=== PATIENT | male | born 2005 | race Caucasian/White ===

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

== ENCOUNTER 2023-02-25 01:49 | Emergency (ER) | payer BC, SELFPAY ==
[2023-02-25 01:57] VITALS: BP 160/95; PULSE 89; RESP 18; TEMP 36.8; O2SAT 97
--- NOTE | 2023-02-25 02:19 | ED.GENADULT ---
HPI - General Adult General Chief complaint: Unspecified Stated complaint: Rash Source: patient Mode of arrival: ambulatory Limitations: no limitations History of Present Illness HPI narrative: 17-year-old white male who reports he has had what he thinks are triggers for the past week, has bumps over his extremities, trunk, that are intensely pruritic, and reports he has spent a lot time out in his yd, and the grasses been long. is difficult to get sleep without severely they itch. He also reports that he has athlete's foot and is asking for something for that. he also reports he noticed his blood pressure was 160/95, and reports that his blood pressure is a little bit elevated like that at other times as well, and is wondering if he needs blood pressure medicine. He reports he is on 3 medications for bipolar disorder although the only 1 he can remember the name of his clonidine. He denies fever, chills, sinus drainage, sore throat, coughing, shortness of breath, chest pain, palpitation, near-syncope or syncope. Denies pain, nausea vomiting, diarrhea constipation, dysuria urgency or frequency Related Data Allergies Allergy/AdvReac Type Severity Reaction Status Date / Time No Known Allergies Allergy Verified 02/25/23 01:59 [facility] Past Medical History Medical History (Updated 02/25/23 @ 02:56 by Khurram Savage MD) ADHD Anxiety Bipolar disorder with depression Current smoker Left ankle pain Oppositional defiant disorder with chronic irritability and anger (04/28/17) STD exposure Social History Social History Smoking status: Current every day smoker Tobacco type: e-cigarettes/vaping Alcohol intake: current Substance use: never Substance use type: marijuana Lack of Transportation: No Lack of Food: Never True Current Housing: I Have Housing Concerned About Future Housing: No Difficulty Paying Gas/Electric Bills: No Difficulty Paying for Meds: No Currently Unemployed: No Education: Decline to Answer Difficulty w/ Childcare or Family Care: No Living arrangements: alone Exam Narrative: pleasant, well-appearing, oriented x3, no acute distress Const: General: cooperative, healthy appearing, comfortable, no acute distress, well developed, alert, awake and Physically active Orientation/consciousness: patient oriented x3 HENMT: Head: normal to inspection, normocephalic and atraumatic Ears: hearing grossly normal bilaterally and external ears normal Face/Nose/Sinus: Normal external nose present, Normal nares present, Normal nasal mucous membranes and turbinates present and normal facial exam Face and sinus: normal facial exam Mouth: Yes Normal oral and palatal mucosa present, Yes lip normal, Yes tongue normal, Yes oropharynx normal and Yes moist mucous membranes Teeth and gingiva: dentition normal Throat: posterior oropharynx normal and tonsils normal ( erythematous) Eyes: General: appearance normal, both eyes and all related structures Alignment and Position: alignment normal and position normal Periorbital: periorbital findings normal Eyelids: eyelids normal Conjunctivae: conjunctivae normal Sclera: sclerae normal Cornea: corneas normal Pupils: Equal, round and reactive pupils present EOM: EOMs intact bilaterally Neck: Neck: normal visual inspection, full ROM and no lymphadenopathy Chest: Chest palpation & inspection: normal inspection of the chest Resp: Effort & Inspection: normal respiratory effort, able to speak in complete sentences, no audible wheezes, no respiratory distress and no use of accessory muscles Auscultation: clear to auscultation bilaterally Cardio: Jugular venous distension: no JVD Rate: regular rate Rhythm: regular rhythm GI: Inspection: normal to inspection GI Palp: No abdominal tenderness, No Tenderness to palpation present (GI), No Guarding due to palpation present (GI), No No hepatosplenomegaly
[2023-02-25] MEDS: FAMOTIDINE 20 MG TABLET 40 MG PO (02:29)
[2023-02-25] MEDS: LORATADINE 10 MG TABLET PO (02:30)
[2023-02-25] MEDS: predniSONE 20 MG TABLET 60 MG PO (02:30)
[2023-02-25] MEDS: hydrOXYzine HCL 25 MG TABLET 50 MG PO (02:31)
[2023-02-25 03:02] VITALS: BP 154/90; PULSE 81; RESP 18; O2SAT 98
== END 2023-02-25 03:04 | disposition home or self-care (01) ==
PROVIDERS: Emergency Provider Emergency Medicine
DX: B88.0 Other acariasis (principal); B35.3 Tinea pedis; R03.0 Elevated blood-pressure reading, without diagnosis of hypertension; S80.862A Insect bite (nonvenomous), left lower leg, initial encounter; S80.861A Insect bite (nonvenomous), right lower leg, initial encounter; S40.862A Insect bite (nonvenomous) of left upper arm, initial encounter; S40.861A Insect bite (nonvenomous) of right upper arm, initial encounter; F17.290 Nicotine dependence, other tobacco product, uncomplicated; W57.XXXA Bitten or stung by nonvenomous insect and other nonvenomous arthropods, initial encounter
CPT/HCPCS: 99283; A9270; J7512

== ENCOUNTER 2025-08-13 23:57 | Emergency (ER) | payer BC, MEDICAID, SELFPAY ==
--- NOTE | ~2025-08-13 | US_ITS ---
EXAMINATION: US scrotum doppler DATE: 08/14/2025 02:15 INDICATION: Testicular pain. TECHNIQUE: Grayscale and Doppler ultrasound images of the testes were obtained. COMPARISON: None. FINDINGS: The right testis measures 4.6 x 2.3 x 3.2 cm. The left testis measures 4.4 x 2.3 x 3.1 cm. There is normal vascular flow to both testes. The right epididymis is normal. The left epididymis is normal. Color Doppler of the epididymides was not performed. There is no varicocele or hydrocele. IMPRESSION: 1. Normal testes. Reviewed, dictated and finalized at location E. WRITER IMPRESSION: 1. Normal testes.
--- NOTE | 2025-08-14 00:10 | ED_ITS ---
HPI - General Adult General Chief complaint: Unspecified Stated complaint: swollen testicle Time Seen by Provider: 08/14/25 00:02 History of Present Illness HPI narrative: 20-year-old otherwise healthy male presenting to the emergency department after penile/scrotal injury while having intercourse. [place] around 9:00 a.m. about 15 hours prior to initial assessment. He states that he was having sex with his girlfriend when he accidentally withdrew his penis and it bent while trying to be reinserted and he had significant sudden-onset pain and felt a snap, crackle, and pop. and had immediate detumescence and significant pain. He then started developing bruising and bluish/purple discoloration of his penis and scrotum anteriorly. He now has swollen testicles and bluish/ purple discoloration of the scrotal wall and pain along his penile shaft. Denies any dysuria or hematuria but states that he has not really had to go the bathroom since this happened. States that he could not obtain an erection again and was too painful to try. Denies any other injuries. No fever chills. Related Data Allergies Allergy/AdvReac Type Severity Reaction Status Date / Time No Known Allergies Allergy Verified 08/14/25 00:07 Review of Systems 2 Review of Systems: As reviewed above in HPI All systems reviewed & are unremarkable except as noted in HPI and below PMFSH Past Medical History Medical History Left ankle pain Anxiety STD exposure Current smoker Bipolar disorder with depression ADHD Oppositional defiant disorder with chronic irritability and anger (04/28/17) Social History Social History Smoking status: Current every day smoker Tobacco type: e-cigarettes/vaping Alcohol intake: current Substance use: never Substance use type: marijuana Lack of Transportation: No Lack of Food: Never True Current Housing: I Have Housing Concerned About Future Housing: No Difficulty Paying Gas/Electric Bills: No Difficulty Paying for Meds: No Currently Unemployed: No Education: Decline to Answer Difficulty w/ Childcare or Family Care: No Living arrangements: alone Exam 2 Narrative: GENERAL: [Well-appearing, well-nourished, and in no acute distress.] HEAD: [Normocephalic, atraumatic.] EYES: [PERRLA and EOMI.] ENT: Nares clear, no rhinorrhea or epistaxis. Mucous membranes moist. NECK: Supple. CHEST: [Clear to auscultation. No respiratory distress.] HEART: [Regular rate and rhythm]. No murmur heard. [Normal peripheral pulses.] ABDOMEN: [Soft, nondistended], [nontender], [No rigidity or guarding] : Chaperoned genitourinary examination shows ventral ecchymoses and enlargement of bilateral aspects of scrotum, Testicles palpated without significant pain, scrotal wall with tenderness to palpation. Some discoloration with violaceous hue to the underside of the penis/anterior scrotum. No penile tenderness. No inguinal hernias or masses. EXTREMITIES: Normal range of motion. [No edema.] SKIN: Warm, dry, no rash. NEURO: [No focal deficits]. Alert and oriented [x3.] PSYCH: [Normal mood and affect.] Course Vital Signs Vital signs: Vital Signs Temperature 36.7 C 08/14/25 00:13 Pulse Rate 93 08/14/25 00:13 Respiratory Rate 18 08/14/25 00:13 Blood Pressure 153/76 H 08/14/25 00:13 Pulse Oximetry 100 08/14/25 00:13 Temperature 36.7 C 08/14/25 00:13 Pulse Rate 93 08/14/25 00:13 Respiratory Rate 18 08/14/25 00:13 Blood Pressure 153/76 H 08/14/25 00:13 Pulse Oximetry 100 08/14/25 00:13 Medical Decision Making MDM Narrative Medical decision making narrative: 20-year-old otherwise healthy male presenting to the emergency department after penile/scrotal injury while having intercourse. [place] around 9:00 a.m. about 15 hours prior to initial assessment. He states that he was having sex with his girlfriend when he accidentally withdrew his penis and it bent while trying to be reinserted and he had significant sudden-onset pain and felt a snap, crackle, and pop. and had immediate detumescence and significant pain. He then started developing bruising and bluish/purple discoloration of his penis and scrotum anteriorly. He now has swollen testicles and bluish/ purple discoloration of the scrotal wall and pain along his penile shaft. Denies any dysuria or hematuria but states that he has not really had to go the bathroom since this happened. States that he could not obtain an erection again and was too painful to try. Denies any other injuries. No fever chills. Chaperoned genitourinary examination shows ventral ecchymoses and enlargement of bilateral aspects of scrotum, Testicles palpated without significant pain, scrotal wall with tenderness to palpation. Some discoloration with violaceous hue to the underside of the penis/anterior scrotum. No penile tenderness. No inguinal hernias or masses. concern presently for penile fracture versus disruption of the tunica verses Hardin's fascia. Call placed to Urology for recommendations but in the meantime CT scan ultrasound ordered with urinalysis and laboratory studies. Patient offered pain medications but he declined. Urology Dr. Lares did call back and recommended just going to the operating room rather than obtaining imaging results or waiting any longer given story sounds classical for potential fracture. Patient re-evaluated and having no further deterioration or complaints, informed about potential OR. Patient told me that he ate dinner last night. Awaiting Urology at this time. Urology has come evaluated the patient at bedside and does not believe he has a penile fracture after their evaluation. Recommendations are to obtain ultrasound at this time. Scrotal ultrasound obtained and reviewed by the urologist with no interventions needed OR was called off and team went home. Ultrasound formally read by radiology showing no acute findings or evidence of any torsion. Patient felt much better after being here in the ED and safe for discharge home with Urology follow-up. Patient given Tylenol ibuprofen and instructions for scrotal support and to avoid repeat injury to the area. Medical Records Medical records reviewed: Yes I reviewed the external patient's medical records. Vital Signs Vital Signs: Vital Signs Temperature 36.7 C 08/14/25 00:13 Pulse Rate 93 08/14/25 00:13 Respiratory Rate 18 08/14/25 00:13 Blood Pressure 153/76 H 08/14/25 00:13 Pulse Oximetry 100 08/14/25 00:13 Temperature 36.7 C 08/14/25 00:13 Pulse Rate 93 08/14/25 00:13 Respiratory Rate 18 08/14/25 00:13 Blood Pressure 153/76 H 08/14/25 00:13 Pulse Oximetry 100 08/14/25 00:13 Lab Data Lab results reviewed: Yes I reviewed the patient's lab results. 08/14/25 00:18 08/14/25 00:18 Labs: Lab Results 08/14/25 08/14/25 Range/Units 00:18 00:21 WBC 7.5 (4.5-10.0) K/mm3 RBC 5.15 (4.6-6.20) M/mm3 Hgb 15.3 (14.0-18.0) g/dL Hct 44.9 (42.0-52.0) % MCV 87.2 (80-100) fl MCH 29.7 (26-34) pg MCHC 34.1 (32-36) g/dl RDW 11.9 (11.5-14.5) % Plt Count 202 (150-375) k/mm3 MPV 8.5 (7.4-10.4) fl Immature Gran % (Auto) 0.1 (0-0.5) % Neut % (Auto) 61.1 (45.5-73.1) % Lymph % (Auto) 28.5 (18.3-44.2) % [place] % (Auto) 9.4 H (2.6-8.5) % Eos % (Auto) 0.5 (0-4.4) % Baso % (Auto) 0.4 (0.2-1.2) % Lymph # (Auto) 2.14 (0.9-3.2) K/mm3 [place] # (Auto) 0.7 H (0.1-0.6) K/mm3 Eos # (Auto) 0.0 (0-0.3) K/mm3 Baso # (Auto) 0.0 (0.0-0.1) K/mm3 Abs Immat Gran (auto) 0.01 (0.00-0.031) K/mm3 Absolute Neuts (auto) 4.6 (1.3-6.7) K/mm3 Absolute Nucleated RBC 0.000 (0.0-0.012) K/mm3 Nucleated RBC % 0.0 (0.0-0.2) % Sodium 135 L (137-145) mmol/L Potassium 4.2 (3.4-5.0) mmol/L Chloride 99 (98-107) mmol/L Carbon Dioxide 28 (22-30) mmol/L Anion Gap 8 (4-12) mmol/L BUN 15 (9-20) mg/dL Creatinine 1.33 H (0.7-1.3) mg/dL Estim Creat Clear Calc 83 ml/min Estimated GFR > 60 (59 - ) Glucose 96 (65-110) mg/dL Calcium 9.3 (8.4-10.2) mg/dL Urine Color Dark yellow (Yellow) Urine Appearance Clear (Clear) Urine pH 5.5 (5.0-9.0) Ur Specific [place] 1.032 (1.001-1.035) Urine Protein Trace (Negative) mg/dL Urine Glucose (UA) Negative (Negative) mg/dL Urine Ketones Trace H (Negative) mg/dL Ur Blood (Man) Negative (Negative) Urine Nitrate Negative (Negative) Urine Bilirubin Negative (Negative) Urine Urobilinogen 1.0 (<2.0) mg/dL Add Ur Microanalysis Reviewed Leukocyte Esterase Rfl Negative (Negative) ANTONY/UL Urine RBC 0-2 (0-2) /hpf Urine WBC 0-5 (0-3) /hpf Ur Squamous Epith Cells None seen (Few) /hpf Urine Bacteria None seen /hpf Urine Casts 6-10 Hyaline Casts Present (None) /lpf Urine Mucus Present /lpf C. trachomatis (PCR) Not detected (NOT DETECTE) N. gonorrhoeae (PCR) Not detected (NOT DETECTE) T. vaginalis (PCR) Not detected (NOT DETECTE) Blood Type O Positive Antibody Screen Negative Imaging Data Attestation: I personally reviewed and interpreted this imaging study as follows: My impression: nothing acute Discharge Plan Discharge Clinical Impression: Scrotal bruise Patient Disposition: Home Condition: Stable Instructions: Antibiotic Form, Scrotal Pain (ED) Additional Instructions: No urgent or emergent concerns identified today. No fractures or testicular involvement. Wear tight-fitting scrotal supporting underwear for comfort and take Tylenol and ibuprofen every 6-8 hours for control of symptoms. Follow-up with Urology outpatient return with any emergent concerns. Patient Language: [place] Island[place] Prescriptions: No Action prednisone 5 mg tablet 5 mg PO DIRECTED Qty: 50 0RF Rx Instructions: take 9 tablets the morning of 02/26/2023, then taper by 1 tablet daily until gone loratadine [Claritin] 10 mg tablet 10 mg PO BID Qty: 40 0RF hydroxyzine HCl 25 mg tablet 25 mg PO QID PRN (Reason: itching) Qty: 60 0RF famotidine [Pepcid] 20 mg tablet 20 mg PO BID Qty: 60 0RF terbinafine HCl [Athlete's Foot (terbinafine)] 1 % cream 1 applic topical BID Qty: 30 2RF Follow-up/Referrals: Jean-Paul Lares MD [Physician, Urology] - 1 Week Referral Note: Scrotal bruising UNKNOWN,DOCTOR [Non-Staff] Time of Disposition: 03:45
[2025-08-14 00:13] VITALS: BP 153/76; PULSE 93; RESP 18; TEMP 36.7; O2SAT 100
[2025-08-14 00:34] LABS: Hematocrit 44.9 % (42.0-52.0); Hemoglobin 15.3 g/dL (14.0-18.0); Immature Granulocyte Percent A 0.1 % (0-0.5); Lymphocytes Absolute Auto 2.14 K/mm3 (0.9-3.2); Mean Corpuscular HGB Conc 34.1 g/dl (32-36); Mean Corpuscular Hemoglobin 29.7 pg (26-34); Mean Corpuscular Volume 87.2 fl (80-100); Nucleated Red Blood Cells Absolute Auto 0.000 K/mm3 (0.0-0.012); Nucleated Red Blood Cells Perc 0.0 % (0.0-0.2); Platelet Count Result 202 k/mm3 (150-375); Red Blood Count 5.15 M/mm3 (4.6-6.20); White Blood Count 7.5 K/mm3 (4.5-10.0)
[2025-08-14 00:49] LABS: Anion Gap 8 mmol/L (4-12); Blood Urea Nitrogen 15 mg/dL (9-20); Calcium 9.3 mg/dL (8.4-10.2); Carbon Dioxide 28 mmol/L (22-30); Chloride 99 mmol/L (98-107); Estimated CRCL calculation 83 ml/min; Estimated Glomerular Filt Rate > 60; Glucose 96 mg/dL (65-110); Potassium 4.2 mmol/L (3.4-5.0); Sodium 135 mmol/L (137-145)
[2025-08-14 00:51] LABS: Add Urine Microscopic? YES; Appearance Urine Clear (Clear); Glucose Urine UA Negative (Negative); Leukocyte Esterase Ur Negative LEU/UL (Negative); Need Manual Microscopic Reviewed; Nitrate Urine Negative (Negative); Specific Grav Ur 1.032 (1.001-1.035)
--- NOTE | 2025-08-14 01:20 | PC.NURSE ---
Pt being prep for OR, personal items placed in belonging bag. Made NPO, Surgeon in room speaking with pt. Recommends [facility]. OR updated.
--- NOTE | 2025-08-14 01:23 | P.CONUR_ITS ---
Assessment and Plan Assessment and plan (1) Scrotal bruise: Code(s): S30.22XA - Contusion of scrotum and testes, initial encounter Status: Acute Assessment and Plan: I see no physical evidence of penile fracture. Will check a penile ultrasound to verify no visible hematoma or tunical disruption, but neither clinically nor physically does he have a penile fracture. Urology Consult Note HPI Date Seen: 08/14/25 Requesting Physician: ED provider Primary Care Provider: PHYSICIAN NOT ON STAFF Consult Narrative Narrative: Hany Macdonald is a 20 year old male with an injury during sex about 14 hours ago. He said he heard a pop. He actually was able to get an erection afterwards. There is some question about timing of sexual activity, but he says it was 0900 yesterday. He has some slight bruising on his scrotum, but his penis is entirely normal. No other urologic history. Review of Systems 2 Review of Systems: All systems reviewed & are unremarkable except as noted in HPI and below PMFSH Past Medical History Medical History Left ankle pain Anxiety STD exposure Current smoker Bipolar disorder with depression ADHD Oppositional defiant disorder with chronic irritability and anger (04/28/17) Social History Social History Smoking status: Current every day smoker Tobacco type: e-cigarettes/vaping Alcohol intake: current Substance use: never Substance use type: marijuana Lack of Transportation: No Lack of Food: Never True Current Housing: I Have Housing Concerned About Future Housing: No Difficulty Paying Gas/Electric Bills: No Difficulty Paying for Meds: No Currently Unemployed: No Education: Decline to Answer Difficulty w/ Childcare or Family Care: No Living arrangements: alone Meds Home Medications and Allergies Home Medications ?Medication ?Instructions ?Recorded ?Confirmed ?Type famotidine 20 mg tablet (Pepcid) 20 mg PO BID #60 tabs 02/25/23 Rx hydroxyzine HCl 25 mg tablet 25 mg PO QID PRN itching #60 tabs 02/25/23 Rx loratadine 10 mg tablet (Claritin) 10 mg PO BID #40 ta bs 02/25/23 Rx prednisone 5 mg tablet 5 mg PO DIRECTED #50 tabs 02/25/23 Rx terbinafine HCl 1 % topical cream 1 applic topical BID #30 grams 02/25/23 Rx (Athlete's Foot (terbinafine)) Allergies Allergy/AdvReac Type Severity Reaction Status Date / Time No Known Allergies Allergy Verified 08/14/25 00:07 Vital Signs Vital Signs - 24 hr 08/14/25 00:13 Temperature 36.7 C Pulse Rate 93 Respiratory Rate 18 Blood Pressure 153/76 H Pulse Oximetry 100 Exam 2 Narrative: Alert, oriented, a bit jittery. No neurologic deficits or abnormalities noted. Slight bruising to the anterior scrotum, but the scrotum otherwise is normal. Penis is normal without bruising, tenderness, or palpable deformity. Results Labs 08/14/25 00:18 08/14/25 00:18 Labs: Short CBC 08/14/25 Range/Units 00:18 WBC 7.5 (4.5-10.0) K/mm3 Hgb 15.3 (14.0-18.0) g/dL Hct 44.9 (42.0-52.0) % Plt Count 202 (150-375) k/mm3 BMP 08/14/25 00:18 Sodium 135 L Potassium 4.2 Chloride 99 Carbon Dioxide 28 BUN 15 Creatinine 1.33 H Glucose 96 Calcium 9.3 Urine 08/14/25 Range/Units 00:18 Urine Color Dark yellow (Yellow) Urine Appearance Clear (Clear) Urine pH 5.5 (5.0-9.0) Ur Specific [place] 1.032 (1.001-1.035) Urine Protein Trace (Negative) mg/dL Urine Glucose (UA) Negative (Negative) mg/dL
[2025-08-14 01:43] LABS: Trichomonas Vag PCR NOT DETECTED (NOT DETECTE)
== END 2025-08-14 04:03 | disposition home or self-care (01) ==
PROVIDERS: Emergency Provider Student in an Organized Health Care Education/Training Program
DX: S30.22XA Contusion of scrotum and testes, initial encounter (principal); F17.290 Nicotine dependence, other tobacco product, uncomplicated; X58.XXXA Exposure to other specified factors, initial encounter
CPT/HCPCS: 36415; 76870; 80048; 81001; 85025; 86850; 86900; 86901; 87491; 87591; 87661; 93976; 96360; 99284; J7030